=== PATIENT | female | born 1995 | race Caucasian/White ===

== ENCOUNTER 2019-05-31 19:25 | Inpatient (IN) | payer BC ==
--- OUTSIDE RECORDS SUMMARY | 2019-05-31 19:29 | XMS REPORT ---
:1995 [facility] [address] [place] [address] Dr. Solano. [address] [place] [id number] Care Team Providers Name Role Phone Unavailable Unavailable Unavailable Problems This patient has no known problems. Allergies, Adverse Reactions, Alerts This patient has no known allergies or adverse reactions. Medications This patient has no known medications.
[2019-05-31] MEDS ORDERED: Ringers Lactate 1,000 ML IV PRN (19:42)
[2019-05-31] MEDS ORDERED: PENICILLIN 5 MU in NA CHLORIDE 0.9% 100 ML IV ONE (19:42)
[2019-05-31] MEDS ORDERED: METHYLERGONOVINE 0.2MG/ML AMP IM PRN ×2 (19:42→21:25)
[2019-05-31] MEDS ORDERED: CARBOPROST TROME 250 MCG/ML IM ONE (19:47)
[2019-05-31] MEDS ORDERED: OXYTOCIN/LR 20 UNIT/1,000 ML BAG IV SCH ×2 (19:48→22:00)
[2019-05-31] MEDS ORDERED: Ringers Lactate 1,000 ML IV SCH (20:00)
[2019-05-31] MEDS ORDERED: BUTORPHANOL 1 MG/ML INJ ONE (20:06)
[2019-05-31 20:21] LABS: Absolute Lymphocytes (CBC) 3.2 K/uL (0.7-4.9); Basophils % 0.6 % (0-1.3); Hematocrit 35.5 % (36.0-45.0); Lymphocytes % 20.3 % (15.3-44.8); MPV 9.1 fL (7.6-11.3); RBC Red Blood Cell Count 4.02 M/uL (3.86-4.86)
[2019-05-31 20:57] LABS: RPR (Rapid Plasma Reagin) NON-REACT (NON-REACT)
[2019-05-31] MEDS ORDERED: PENICILLIN 2.5 MU in NA CHLORIDE 0.9% 100 ML IV SCH (21:00)
[2019-05-31] MEDS ORDERED: LIDOCAINE 1% MPF 30 ML VIAL ONE (21:09)
--- NOTE | 2019-05-31 21:10 | PREOPHP ---
Date of Admission: 05/31/2019 History Of Present Illness: Ms. Sevilla is a 23-year-old female, 2, para 1-0-0-1, n ow at approximately 35+ weeks gestation. She has been followed by me during this without c omplications other than delivery at the 37 weeks gestation previously. She was observed earlier toda y with contractions noted to be 2 cm, was given 2 doses of subcu terbutaline, contraction stop. She was dismissed with precaution. She returns now at 6 cm cervical dilatation. She denies recent cough . Past Medical History And Family History: Please see record. Review of Systems: She reports no recent cough, cold, fever, or chills. No recent nausea or vomiting. No breast knots or lumps. No bowel or bladder issues. Physical Examination: General: female, in moderate discomfort. Neck: Supple without adenopathy or thyromegaly. Lungs: Clear. Cardiac: Regular rate and rhythm without murmurs. Breasts: Not examined. Abdomen: Estimated weight is 7 pounds. Pelvic: Cervix noted to be 6 cm on admission, now 8 cm dilated, 15 minutes later. Vertex presentati on at 0 station. Contractions every 2 to 3 minutes with reactive heart rate. Extremities: No cyanosis, clubbing, or edema. Impression: 35+ week , active rapidly advancing labor. Plan: Patient will be given a dose of penicillin. We will plan vaginal delivery. Will be given 1 m g Stadol for analgesia. Doubt epidural anesthesia will be possible before delivery. KYLER/TREMAYNE Voice ID: [id number]
[2019-05-31] MEDS ORDERED: METHYLERGONOVINE 0.2 MG TAB PO PRN (21:25)
[2019-05-31] MEDS ORDERED: ACETAMINOPHEN 500 MG TAB PO PRN (21:25)
[2019-05-31] MEDS ORDERED: IBUPROFEN 200 MG TAB PO PRN (21:25)
[2019-05-31] MEDS ORDERED: CARBOPROST TROME 250 MCG/ML IM PRN (21:25)
[2019-05-31] MEDS ORDERED: ONDANSETRON 4 MG (ODT) TAB PO PRN (21:25)
--- NOTE | 2019-05-31 21:28 | P.BOP ---
Preoperative diagnosis: 35+ wk , active labor Postoperative diagnosis: Same, delivery viable male infant Estimated blood loss: 250ml Complications: None Transferred to: Other (274) Condition: Good
[2019-05-31] MEDS ORDERED: Ringers Lactate 1,000 ML IV ONE (23:34)
[2019-06-01 01:20] VITALS: BMI 28.2
--- NOTE | 2019-06-01 17:00 | DN ---
Surgeon: Yassine Aguilar MD Amarilis is a 23-year-old female, 2, para 1-0-0-1, at 35+ weeks gestation, admitted in active labor. She was noted to be 6 cm on admission. Because of this, she was given a dose of peni cillin for beta strep prophylaxis secondary to labor. She proceeded with first stage of labo r of approximately an hour and 38 minutes, second stage of labor 4 minutes. She delivered by spontan eous controlled vaginal delivery, a 4 pounds 14 ounces female infant. After delayed cord clamping an d milking of the cord towards the , cord was clamped, cut, and the placed on mother's up per abdomen. Cord blood was obtained. The placenta was spontaneously expelled and appeared to be in tact. Intrauterine examination revealed no retained placental fragments. She had a right labial abr asion, otherwise no lacerations and nothing that required repair. Quantitative blood loss was 232 mL . She received 1 mg of Stadol for analgesia during her labor course. KYLER/TREMAYNE Voice ID: [id number] Report ID: [id number]
[2019-06-01 20:09] VITALS: TEMP 97.7
[2019-06-02 07:26] VITALS: BP 127/91
--- NOTE | 2019-06-03 01:53 | DS ---
Date of Discharge: 06/02/2019 Final Hospital Discharge Diagnosis: A 35 plus week , delivered. Complications: labor and delivery. Procedures: Artificial rupture of membranes, spontaneous controlled vaginal delivery of viable femal e infant. Hospital Course: The patient is a 23-year-old female, 2, para 1-0-0-1, at 35 plus weeks gestation, admitted in active rapidly advancing labor. She delivered a 4-pound 14-ounce female . She was dismissed on the second day ambulatory, on a select diet with routine po st vaginal delivery activity restrictions, to be seen back in my office in 1 week period of time. La tl work obtained during this hospital stay included an admission hemoglobin and hematocrit of 12.1 and 35.5, dismissal of 36.1. She is A positive blood type, rubella immune. She was dismissed to take i buprofen for pain relief. Breast-feeding her infant. To continue taking her iron and vitam ins with usual post vaginal delivery activity restrictions. KYLER/TREMAYNE Voice ID: [id number] Report ID: [id number]
[2019-06-04 02:57] LABS: HBsAG Nonreactive (Nonreactive)
== END 2019-06-02 09:55 | disposition home or self-care (01) | DRG 807 ==
LOC: L&D 19:25 → 2ND-WC 19:43
PROVIDERS: ADMIT Specialist; ATTEND Specialist
PROC: 10E0XZZ Delivery of Products of Conception, External Approach (ICD-10-PCS; principal; 2019-05-31)
PROC: 10907ZC Drainage of Amniotic Fluid, Therapeutic from Products of Conception, Via Natural or Artificial Opening (ICD-10-PCS; 2019-05-31)
DX: O60.14X0 Preterm labor third trimester with preterm delivery third trimester, not applicable or unspecified (principal); Z37.0 Single live birth; Z3A.35 35 weeks gestation of pregnancy
CPT/HCPCS: 36415; 85014; 85025; 86592; 86850; 86900; 86901; 87340; 96372; 99218; J0595; J2210; J2590; J3105; J7120